=== PATIENT | female | born 1990 | race Caucasian/White ===

== ENCOUNTER 2019-08-07 07:57 | Emergency (ER) | payer MEDICAID ==
[~2019-08-07] VITALS: Ht 157.5 cm; Wt 72.4 kg
[2019-08-07 08:02] VITALS: Ht 157.5 cm; Wt 72.4 kg
[2019-08-07] MEDS ORDERED: AUGMENTIN 875-11 TAB PO (08:42)
[2019-08-07] MEDS ORDERED: FLUTICASONE PRO16 GM NASAL (08:42)
[2019-08-07 08:47] VITALS: BP 127/76
== END 2019-08-07 08:50 | disposition home or self-care (01) ==
LOC: D.ER 07:57
DX: J01.90 Acute sinusitis, unspecified (principal); Z72.0 Tobacco use